=== PATIENT | female | born 1985 | race Caucasian/White ===

== ENCOUNTER 2022-09-25 17:17 | Emergency (ER) | payer OTHER, BC ==
[~2022-09-25] VITALS: Ht 175.3 cm; Wt 81.8 kg
[2022-09-25 17:26] VITALS: TEMP 98
[2022-09-25 19:21] VITALS: BP 156/86; PULSE 77
== END 2022-09-25 19:22 | disposition home or self-care (01) ==
LOC: COL.ER 17:17
DX: S93.402A Sprain of unspecified ligament of left ankle, initial encounter (principal); Z28.310 Unvaccinated for COVID-19; X50.1XXA Overexertion from prolonged static or awkward postures, initial encounter; Y93.01 Activity, walking, marching and hiking